=== PATIENT | male | born 1990 | race Caucasian/White ===

== ENCOUNTER 2018-03-07 19:25 | Inpatient (IN) | payer MEDICAID ==
[~2018-03-07] VITALS: Ht 185.4 cm; Wt 125.0 kg
[2018-03-07 20:36] LABS: ALKALINE PHOSPHATASE 42 U/L (46-116); ALT (SGPT) 30 U/L (10-68); BILIRUBIN - TOTAL 0.99 mg/dL (0.2-1.3); CALC OSMOLALITY 273 mosm/kg (275-300); CALCIUM 8.5 mg/dL (8.5-10.1); CARBON DIOXIDE 21.6 mmol/L (21.0-32.0); CHLORIDE - SERUM 96 mmol/L (98-107); CREATININE - SERUM 1.8 mg/dL (0.6-1.3); GLUCOSE 169 mg/dL (74-106); POTASSIUM - SERUM 3.4 mmol/L (3.5-5.1); PROTEIN - SERUM 6.6 g/dL (6.4-8.2); SODIUM 133 mmol/L (136-145); UREA NITROGEN 24 mg/dL (7-18); eGFR NON AFRICAN AMERICAN 49 mL/min (90-120)
[2018-03-07 20:39] LABS: APPEARANCE HAZY (CLEAR); COLOR DK YELLOW (YELLOW); SPECIFIC GRAVITY 1.025 (1.005-1.020)
[2018-03-07 20:39] LABS: AMYLASE - SERUM 26 U/L (25-115); LIPASE 57 U/L (73-393)
[2018-03-07 20:40] LABS: BILIRUBIN NEGATIVE (NEGATIVE); GLUCOSE NEGATIVE (NEGATIVE); KETONE NEGATIVE (NEGATIVE); NITRITE NEGATIVE (NEGATIVE); PROTEIN 1+ mg/dL (NEGATIVE); UROBILINOGEN NORMAL (NORMAL)
[2018-03-07 20:41] LABS: BACTERIA MODERATE /hpf (NONE SEEN); RED CELLS - URINE >50 /hpf (0-5)
[2018-03-07 20:47] LABS: HEMOGLOBIN 15.5 g/dL (13.5-17.5); MCH 32.1 pg (26.0-34.0); MEAN PLATELET VOLUME 11.2 fL (7.4-10.4); PLATELET COUNT 188 10x3/uL (130-400); RBC 4.83 10x6/uL (4.20-6.10); RDW 13.3 % (11.5-14.5)
[2018-03-07 20:53] LABS: TROPONIN-I < 0.017 ng/mL (0.000-0.060)
--- NOTE | 2018-03-07 21:23 | NUR ---
PT GONE WITH RADIOLOGY
[2018-03-07 21:33] LABS: LYMPHOCYTES 9 % (15-50); MONOCYTES 5 % (2-11); NEUTROPHILS 86 % (40-80); PLATELET ESTIMATE NORMAL
[2018-03-07 23:48] VITALS: BP 108/65; BMI 36.3
[2018-03-08] VITALS (12 sets, daily range): BP systolic 107–130; BP diastolic 51–81; Ht 185.4 cm; Wt 125.0 kg
--- NOTE | 2018-03-08 04:52 | NUR ---
refused am labs.
--- NOTE | 2018-03-08 07:35 | NUR ---
PT RESTING IN BED WITH EYES OPEN. RESPIRATIONS ARE EVEN AND UNLABORED. PT IS REFUSING SCDS. PT DENIES PRESENCE OF PAIN AT THIS TIME. PT DENIES PRESENCE OF N/V AT THIS TIME. PT REFUSED LAB DRAW THIS AM. PT WITH BOX FAN RUNNING IN ROOM. BED IS IN LOWEST POSITION. CALL LIGHT AND BED SIDE TABLE ARE WITHIN REACH. WILL CONT TO MONITOR.
--- NOTE | 2018-03-08 09:12 | NUR ---
RIGHT UPPER ARM IV WITH SWELLING AND REDNESS. IV INFUSION STOPPED. VASCULAR ACCESS NURSE NOTIFIED FOR ASSISTANCE WITH IV PLACEMENT.
--- NOTE | 2018-03-08 12:15 | NUR ---
NO PRE OP MEDS ORDERED. PT WITHOUT IV ACCESS, SURGERY STAFF IS AWARE. ANESTHESIA NOTIFIED OF NO PRE OP MEDICATIONS. MIAN WITH TRANSPORT AWARE OF NO PRE OP MEDS AND NO IV ACCESS.
--- NOTE | 2018-03-08 12:22 | NUR ---
PT OFF FLOOR VIA BED FOR OPERATION.
--- NOTE | 2018-03-08 15:14 | NUR ---
PT RETURNED TO ROOM VIA BED. VSS STABLE. O2 @ SL VIA NC. LAP SITES X 2 TO ABDOMEN, DRESSINGS ARE C/D/I. XIANG DRAIN TO ABDOMEN WITH LIGHT RED FLUID NOTED. PT IS REFUSING SCDS AT THIS TIME. PT DENIES PRESENCE OF PAIN AND N/V AT THIS TIME. BED IS IN THE LOWEST POSITION. CALL LIGHT AND BEDSIDE TABLE ARE WITHIN REACH. WILL CONT TO MONITOR.
--- NOTE | 2018-03-08 18:24 | NUR ---
SPOKE WITH DR HARVEY PERTAINING TO PT POST OP DIET. PER DR HARVEY THE PT MAY HAVE A REGULAR DIET. DIET ORDER PLACED. CAFETERIA NOTIFIED.
--- NOTE | 2018-03-08 20:00 | NUR ---
RESTING IN BED REPORTS FEELING MUCH BETTER SINCE GETTING MOLDING UTILITY WORKER STARTED ABLE TO MOVE WITHOUT HURTING, ASSESSMEN TCOMPLETED CALL NAN HENDERSON
[2018-03-09 00:46] VITALS: BP 117/67
[2018-03-09 04:57] VITALS: BP 117/73
[2018-03-09 06:58] LABS: BASOPHILS 0.1 % (0-2); EOSINOPHILS 0.1 % (0-7); HEMATOCRIT 37.4 % (42.0-54.0); HEMOGLOBIN 13.2 g/dL (13.5-17.5); IMMATURE GRANULOCYTES 0.4 % (0-5); LYMPHOCYTES 6.5 % (15-50); MCH 31.7 pg (26.0-34.0); MCHC 35.3 g/dL (31.0-37.0); MCV 89.9 fL (80.0-100.0); MONOCYTES 6.1 % (2-11); NEUTROPHILS 86.8 % (40-80); PLATELET COUNT 155 10x3/uL (130-400); RBC 4.16 10x6/uL (4.20-6.10); RDW 13.4 % (11.5-14.5)
[2018-03-09 07:12] LABS: ANION GAP 15.3 mmol/L (8-16); CALCIUM 7.9 mg/dL (8.5-10.1); CARBON DIOXIDE 22.3 mmol/L (21.0-32.0); CREATININE - SERUM 1.8 mg/dL (0.6-1.3); POTASSIUM - SERUM 3.6 mmol/L (3.5-5.1)
--- NOTE | 2018-03-09 07:33 | NUR ---
PT STANDING BETWEEN BED AND BATHROOM DOOR. PT DENIES PRESENCE OF DIZZINESS/LIGHTHEADEDNESS. PT DENIES PRESENCE OF PAIN AT THIS TIME. DILAUDID HAND TIER IS AVAILABLE AND WITHIN PT REACH. PT WITH XIANG DRAIN TO ABDOMEN WITH SERROUS FLUID NOTED. XIANG DRAIN IS COMPRESSED. LAP SITES X 3 TO ABDOMEN DRESSINGS ARE C/D/I. PT REPORTS FEELING BETTER TODAY AND HAS ATE SOLID FOODS AND DENIES PRESENCE OF N/V. PT REPORTS THAT HE IS PASSING GAS, BUT HAS YET TO HAVE A BM. PT ASSISTED BACK TO BED. PT STATES, "CAN I GO OUTSIDE". PT INFORMED OF HAND TIER AND INABILITY TO TAKE MEDICATION OUTSIDE. PT VERBALIZES UNDERSTANDING. PT INFORMED OF NICOTINE PATCH AND PT VERBALIZES UNDERSTANDING AND WILL STAY IN ROOM. BED IS IN THE LOWEST POSITION. CALL LIGHT AND BEDSIDE TABLE ARE WITHIN REACH. WILL CONT TO MONITOR. PT DENIES FURTHER NEEDS AT THIS TIME.
--- NOTE | 2018-03-09 08:11 | OP ---
PATIENT NAME: GABRIEL EMERY MEDICAL RECORD: [id number] :89 LOCATION:[id number] ADMISSION DATE:03/07/18 SURGEON: GUEVARA DOMINGUEZ MD DATE OF OPERATION: 03/08/2018 PREOPERATIVE DIAGNOSES: 1. Acute appendicitis with perforation and abscess. 2. Tobacco dependence syndrome. POSTOPERATIVE DIAGNOSES: 1. Acute appendicitis with perforation and abscess. 2. Tobacco dependence syndrome. PROCEDURE: Laparoscopic appendectomy. SURGEON: Guevara Dominguez MD REPORT OF PROCEDURE: The patient's abdomen was prepped and draped in sterile fashion. A cutdown was made on the superior aspect of the umbilicus. #0 Vicryls were placed on the fascia bilaterally and the fascia was incised with #15 blade. I then bluntly entered the peritoneal cavity and placed a 12-mm Stanley port. Under direct visualization, a 5-mm trocar was placed in the left lower quadrant and another was placed in the suprapubic region. There was a marked amount of inflammation and adhesions present in the suprapubic region and the right lower quadrant. As we teased these down, there was noted to be purulent-appearing fluid present. This was suctioned out and irrigated as we encountered it. There was a lot of inflammation to the omental fat as it overlaid the right lower quadrant. We eventually were able to get underneath this and roll it back up into the upper abdomen. There was a lot of inflammatory adhesions between the small bowel and the abdominal wall. Carefully, these were all taken down with blunt dissection. We were eventually able to get down to the right lower quadrant near the cecum and found a perforated appendix with surrounding abscess. We penetrated this abscess pocket and irrigated and suctioned out this fluid. The appendix was perforated on its middle portion and there was noted to be gangrenous changes on the tip of the appendix. We dissected down to the base of the appendix as it entered the cecum. The base of the appendix actually appeared to be viable and normal in nature. A window was made in the mesoappendix and this was transected with a 45 white load Endo-RAYMOND stapler. The appendix was transected at its base with a 45 blue load Endo-RAYMOND stapler. We placed the appendix in an EndoCatch bag. We then performed a tedious irrigation of the patient's abdomen with a total of 3 liters of saline. Care was taken to really irrigate out any of the adhesed tissue in the patient's pelvis and right lower quadrant. At the conclusion of this, we were having a clear return of fluid with no murky fluid or purulence. It appeared that all of the adhesions were taken down from the right lower quadrant and pelvis. We then removed the 5-mm trocar from the suprapubic region and inserted a 19-Frisian Hugh drain in its place. This Hugh drain was placed in the pelvis and the right lower quadrant. This was sutured into place with 2-0 nylon. We then removed the ports and insufflation. The appendix was taken out through the umbilicus. The umbilical fascia was closed with interrupted #0 Vicryls times 3. The wounds were then irrigated out with normal saline and infused with 10 mL of 0.25% Marcaine with epinephrine. The skin incisions were closed with subcutaneous 5-0 Monocryl and dressed appropriately. COMPLICATIONS: None. OPERATIVE REPORT [id number] GABRIEL EMERY CONDITION: Stable. ANESTHESIA: General endotracheal and local. BLOOD LOSS: 30 mL. TRANSINT:[id number] Voice Confirmation ID: [id number] DOCUMENT ID: [id number] GUEVARA DOMINGUEZ MD at 0811 CC: [id number] DICTATION DATE: 03/08/18 1425 LOAN UNDERWRITER: 03/08/18 1530 ADM IN [facility] [address] [place] [address]
[2018-03-09 08:57] VITALS: BP 106/54
--- NOTE | 2018-03-09 12:49 | MORECARE ---
CASE MANAGEMENT DISCHARGE SUMMARY PATIENT: GABRIEL EMERY UNIT: [id number] ADM DATE: 03/07/18 AGE: 27 : [birth year] SEX: M ROOM/BED: D.2239 AUTHOR: ANGEL SPENCER PHYSICIAN: REFERRING PHYSICIAN: LEÓN DOMINGUEZ MD DATE OF SERVICE: 03/09/18 Discharge Plan Patient Name: GABRIEL EMERY [facility] [facility] 1990 Planned Disposition: Home Anticipated Discharge Date: Discharge Date: Expected LOS: Initial Reviewer: [email or web address] Initial Review Date: 03/09/2018 Generated: 03/09/18 1:49 pm DCPIA - Discharge Planning Initial Assessment Updated by [email or web address]: Kathy Mckeon on 03/09/18 12:48 pm * Is the patient Alert and Oriented? Yes * How many steps to enter\exit or inside your home? 5-6/0 * PCP None * Pharmacy [facility] on [facility] * Preadmission Environment Home with Family * ADLs Independent * Equipment None * List name and contact numbers for known caregivers / representatives who currently or will assist patient after discharge: Marcelina Angulo [facility] [phone] * Verbal permission to speak to the caregivers and representatives has been obtained from the patient. Yes * Community resources currently utilized None * Additional services required to return to the preadmission environment? No * Can the patient safely return to the preadmission environment? Yes * Has this patient been hospitalized within the prior 30 days at any hospital? No Patient Name: GABRIEL EMERY Page 00291 at 1249 All edits/amendments must be made on the electronic document DICTATION DATE: 03/09/181247 CHECKERING MACHINE ADJUSTER: HARMAN 03/09/18 1248 RPT#: [id number] [place] DATE: STATUS: ADM IN [facility] [address] [place] [address] END OF REPORT
--- NOTE | 2018-03-09 12:57 | MORECARE ---
CASE MANAGEMENT DISCHARGE SUMMARY PATIENT: GABRIEL EMERY UNIT: [id number] ADM DATE: 03/07/18 AGE: 27 : [birth year] SEX: M ROOM/BED: D.2239 AUTHOR: TJDOC PHYSICIAN: REFERRING PHYSICIAN: LEÓN DOMINGUEZ MD DATE OF SERVICE: 03/09/18 Discharge Plan Patient Name: GABRIEL EMERY Facility: [facility]:[place] : 1990 Planned Disposition: Home Anticipated Discharge Date: Discharge Date: Expected LOS: Initial Reviewer: [email or web address] Initial Review Date: 03/09/2018 Generated: 03/09/18 1:57 pm Comments DCP- Discharge Planning Updated by [email or web address]: Kathy Mckeon on 03/09/18 11:[address] Patient Name: GABRIEL EMERY Admission Status: ER Accout number: [id number] Admission Date: 03-07-2018 : 1990 Admission Diagnosis: Attending: LEÓN DOMINGUEZ Current LOS: 2 Anticipated DC Date: Planned Disposition: Home Primary Insurance: MEDICAID [place] PENDING Discharge Planning Comments: CM met with patient to discuss discharge planning, he is alone in the room. States he lives with his brother. States they recently moved her from [place]. States he is independent with all ADL's and IADL's. States he does not have any DME or need any DME. Denies need for HHS. States his brother will drive him home on discharge. No needs identified. CM will continue to follow and assist with discharge planning/needs. Micropaleontologist: Kathy Mckeon DCPIA - Discharge Planning Initial Assessment Updated by [email or web address]: Kathy Mckeon on 03/09/18 12:48 pm * Is the patient Alert and Oriented? Yes * How many steps to enter\exit or inside your home? 5-6/0 * PCP None * Pharmacy [facility] on [address] * Preadmission Environment Home with Family * ADLs Independent * Equipment None * List name and contact numbers for known caregivers / representatives who currently or will assist patient after discharge: Marcelina Angulo - [phone] * Verbal permission to speak to the caregivers and representatives has been obtained from the patient. Yes * Community resources currently utilized None * Additional services required to return to the preadmission environment? No * Can the patient safely return to the preadmission environment? Yes * Has this patient been hospitalized within the prior 30 days at any hospital? No Last DP export: 03/09/18 11:49 a Patient Name: GABRIEL EMERY Page [phone] at 1257 All edits/amendments must be made on the electronic document DICTATION DATE: 03/09/18 1257 ELECTRICAL PROSPECTING OBSERVER: HARMAN 03/09/18 1257 RPT#: [id number] DC DATE: STATUS: ADM IN [facility] [address] [place] [address] END OF REPORT
[2018-03-09 13:03] VITALS: BP 113/66
[2018-03-09 17:26] VITALS: BP 140/83
--- NOTE | 2018-03-09 20:00 | NUR ---
ALERT RESTING IN BED NO APPARENT DISTRESS IV INFUSING WITHOUT DIFFICULTY PAIN CONTROLED WITH MINE PRODUCTION ENGINEER CALL LIGHT IN REACH
[2018-03-09 20:31] VITALS: BP 142/66
--- NOTE | 2018-03-09 22:15 | NUR ---
CALLED TO PT ROOM STATES NEEDS DRAIN EMPTIED 100CC EMPTIED STATES LEAKING AT SITE AFTER HAVING BM 4X4 DRESSING APPLIED OVER EXISTING BANDAID DRESSING, WITHIN 5 MIN EMPTIED ADDITIONAL 70 CC SEROUS DRAINAGE FROM XIANG DRAIN WILL MONITOR
--- NOTE | 2018-03-09 23:45 | NUR ---
EMTIED ADDITIONAL 50 + 100 + 100 + 50 CC FROM XIANG DRAIN OVER LAST 45 MIN REMAINS SEROUS IN COLOR DENIES PAIN
[2018-03-10 00:54] VITALS: BP 114/66
--- NOTE | 2018-03-10 01:30 | NUR ---
CALL TO DR DOMINGUEZ IV INFILTRATED AND UNABLE TO FIND IV ACCESS, ORDERS RECIEVED FOR PO NORCO 10/325 Q 4 HRS PRN PAIN AND TO CALL IV ACCESS IN AM. INFORMED OF MISSED DOSES OF ANTIABIOTICS TONIGHT DUE TO NO IV ACCESS
[2018-03-10 09:46] VITALS: BP 132/66
[2018-03-10 19:00] VITALS: BP 119/71
[2018-03-11] VITALS: BP 115/68
[2018-03-11 03:00] VITALS: BP 120/71
--- NOTE | 2018-03-11 05:55 | NUR ---
PT IN BED IN LOW FOWLERS POSITION RESTING QUIETLY WITH EYES CLOSED. ALERT AND ORIENTED X4. VITAL SIGNS STABLE AND AFEBRILE. NO VISUAL CUES OF DISTRESS NOTED. DENIES ANY OTHER NEEDS AT THIS TIME. BED LOW, SIDE RAILS UP X2. CALL LIGHT IN REACH. WILL CONTINUE TO MONITOR.
[2018-03-11 08:00] VITALS: BP 116/65
--- NOTE | 2018-03-11 08:20 | NUR ---
AWAKE AND ALERT, EVEN UNLABORED BREATHING, IV IN LEFT HAND INFUSING FLUIDS WITH VOCATIONAL TRAINING INSTRUCTOR DILAUDID, XIANG DRAIN TO MIDLINE INCISION, 3 LAP SITES COVERED WITH BANDAGES. DENIES ANY CURRENT NEEDS, STATED "PAIN IN CONTROLLED." PAIN LEVEL 4/10 USING NUMERIC SCALE, DENIES ANY OTHER NEEDS OR DISCOMFORTS, BED LOWERED AND LOCKED, CALL LIGHT WITHIN REACH. CPOC
[2018-03-11 12:00] VITALS: BP 142/73
--- NOTE | 2018-03-11 14:19 | NUR ---
SPOKE WITH LAB IN REGARDS TO BLOOD SENSITIVITES. NO RESULTS HAVE RETURNED YET, WE WILL NEED TO RECIEVE THOSE BEFORE PATIENT CAN BE SENT HOME ON THE CORRECT ANTIBIOTIC. PT IS REALLY WANTING TO GO, BUT HAS BE GIVEN EDUCATION ON THE IMPORTANCE OF THIS BLOOD WORK AND ITS RESULTS SO THAT HE WILLR RECIEVE PROPER CARE. VERBALIZES UNDERSTANDING.
[2018-03-11 16:00] VITALS: BP 157/80
--- NOTE | 2018-03-11 18:53 | NUR ---
POST OP DAY 2 FOR RUPTURED APPENDIX. XIANG DRAIN INTACT. IVABX INFUSING AT PRESCRIBED RATE. ENCOURAGED TO USE CALL [facility] FOR ASSSIT.DENIES ANY PAIN OR DISCOMFORT AT THIS TIME
[2018-03-11 19:00] VITALS: BP 142/73
--- NOTE | 2018-03-11 19:18 | NUR ---
AWAKE AND ALERT, IV IN RIGHT HAND, PATENT, INFUSING FLUIDS, EVEN UNLABORED BREATHING, DENIES ANY CURRENT NEEDS OR DISCOMFORTS, BED LOWERED AND LOCKED, CALL LIGHT WITHIN REACH. CPOC
--- NOTE | 2018-03-11 23:55 | NUR ---
In bed with no needs at this time. Did state that he would like a stool jade stated would wate and talk with in am instead of calling [place].call light in reach.
[2018-03-12] VITALS: BP 136/557
[2018-03-12 03:00] VITALS: BP 130/58
--- NOTE | 2018-03-12 07:54 | NUR ---
PT RESTING IN BED EYES CLOSED EASY RISE AND FALL OF CHEST, NO SIGNS OF DISTRESS NOTED, WILL CONTINUE TO MONITOR CL IN REACH
[2018-03-12 08:48] VITALS: BP 134/77
[2018-03-12 12:00] VITALS: BP 171/102
--- NOTE | 2018-03-12 12:49 | NUR ---
CONTINUOUS IMPROVEMENT COACH NOTE: PT SITTING UP ON SIDE OF BED EATING LUNCH. PT ORDERED DOUBLE PORTION OF LUNCH. CO OF PAIN. EDUCATED ON PT TO USE SURGICAL DENTAL ASSISTANT PUMP. PT ADMINISTERED MEDICINE. NO S/S OF ACUTE DISTRESS. CL IN PLACE.
[2018-03-12 16:00] VITALS: BP 117/84
--- NOTE | 2018-03-12 18:24 | NUR ---
PT AAOX4 RESP EVEN AND NONLABORED, NO SIGNS OF DISTRESS NOTED, SITTING UP EATING DINNER, CL IN REACH
[2018-03-12 19:00] VITALS: BP 147/80
--- NOTE | 2018-03-12 21:39 | NUR ---
dR HARVEY IN THIS SHIFT WITH ORDER TO D/C XIANG DRAIN AND D/C PATIENT HOME.WITH DARCY GALARZA NORCO, AND ALEXANDRA. HAND WRITTEN RX FOR ALL. XIANG DRAIN REMOVED TOLLARATED WELL. 15 CC OF SEROUSE DRANAGE ON REMOVAL. PATIENT IS TO FOLLOW UP WITH DR DOMINGUEZ IN TWO WEEKS AND WILL NEED TO CALL FOR APOMENT.
[2018-03-12] MEDS ORDERED: LEVAQUIN750 MG PO (21:56)
[2018-03-12] MEDS ORDERED: COLACE100 MG PO (21:56)
[2018-03-12] MEDS ORDERED: HYDROCODON-ACE1 EAC7 PO (21:56)
[2018-03-12] MEDS ORDERED: FLAGYL500 MG PO (21:57)
--- NOTE | 2018-03-13 01:57 | NUR ---
Evens DRAIN REMOVED PER ORDERS TOLARATED WELL SITE COVERED WITH BANDAID. PATIENT REMINED TO CALL DR. HIGH ON TUESDAY FOR APPOINTMENT FOR RECHECK IN TWO WEEKS. WENT OVER MEDICATIONS FOR PATIENT LEFT WITH RX FOR NORCO 5/325 1 BY MOUTH EVERY 4 HOURS PRN FOR PAIN , COLACE 100MG BY MOUTH TWICE A DAY, LEVAQUIN 750MG BY MOUTH DAILY. AND FLAGYL 500MG BY MOUTH EVERY 12 HOURS. PATIENT STATED THAT HE UNDERSTOOD AND WOULD DO IT. FAMILY ARAVIED AND PATIENT LEFT AY 0135AM.
--- NOTE | 2018-03-21 07:14 | MORECARE ---
CASE MANAGEMENT DISCHARGE SUMMARY PATIENT: GABRIEL EMERY UNIT: [id number] ADM DATE: 03/07/18 AGE: 27 : [birth year] SEX: M ROOM/BED: D.2239 AUTHOR: TJ,DOC PHYSICIAN: REFERRING PHYSICIAN: LEÓN DOMINGUEZ MD DATE OF SERVICE: 03/21/18 Discharge Plan Patient Name: GABRIEL EMERY Facility: [facility]:[place] : 1990 Planned Disposition: Home Anticipated Discharge Date: Discharge Date: 03/13/2018 Expected LOS: Initial Reviewer: [email or web address] Initial Review Date: 03/09/2018 Generated: 03/21/18 8:14 am Comments DCP- Discharge Planning Updated by [email or web address]: aKthy Mckeon on 03/09/18 11:[address] Patient Name: GABRIEL EMERY Admission Status: ER Accout number: [id number] Admission Date: 03-07-2018 : 1990 Admission Diagnosis: Attending: LEÓN DOMINGUEZ Current LOS: 2 Anticipated DC Date: Planned Disposition: Home Primary Insurance: MEDICAID [place] PENDING Discharge Planning Comments: CM met with patient to discuss discharge planning, he is alone in the room. States he lives with his brother. States they recently moved her from [place]. States he is independent with all ADL's and IADL's. States he does not have any DME or need any DME. Denies need for HHS. States his brother will drive him home on discharge. No needs identified. CM will continue to follow and assist with discharge planning/needs. Forestry Engineer: Kathy Mckeon DCPIA - Discharge Planning Initial Assessment Updated by [email or web address]: Kathy Mkceon on 03/09/18 12:48 pm * Is the patient Alert and Oriented? Yes * How many steps to enter\exit or inside your home? 5-6/0 * PCP None * Pharmacy [facility] on [address] * Preadmission Environment Home with Family * ADLs Independent * Equipment None * List name and contact numbers for known caregivers / representatives who currently or will assist patient after discharge: Marcelina Angulo - amandaer - [phone] * Verbal permission to speak to the caregivers and representatives has been obtained from the patient. Yes * Community resources currently utilized None * Additional services required to return to the preadmission environment? No * Can the patient safely return to the preadmission environment? Yes * Has this patient been hospitalized within the prior 30 days at any hospital? No Last DP export: 03/09/18 11:57 a Patient Name: GABRIEL EMERY Page 07453 at 0714 All edits/amendments must be made on the electronic document DICTATION DATE: 03/21/18712 INSURANCE AGENT: HARMAN 03/21/18712 RPT#: [id number] DC DATE:03/13/18 STATUS: DIS IN [place] [id number] [place] [address] END OF REPORT
== END 2018-03-13 00:30 | disposition home or self-care (01) | DRG 340 ==
LOC: D.ER 19:25 → D.MS 22:51
PROVIDERS: Family Medicine; ADMIT Surgery
PROC: 0DTJ4ZZ Resection of Appendix, Percutaneous Endoscopic Approach (ICD-10-PCS; principal; 2018-03-08 10:00)
DX: K35.33 Acute appendicitis with perforation, localized peritonitis, and gangrene, with abscess (principal); F17.200 Nicotine dependence, unspecified, uncomplicated